=== PATIENT | female | born 1945 | race Caucasian/White ===

== ENCOUNTER 2020-02-27 11:51 | Outpatient (REF) | payer MEDICARE, BC, SELFPAY ==
--- NOTE | 2020-02-27 12:02 | XR_ITS ---
EXAMINATION: XR HAND, RIGHT CLINICAL INFORMATION: Right hand pain status post injury. COMPARISON: None TECHNIQUE: PA, lateral, and oblique views of the right hand. FINDINGS: Minimal to mild interphalangeal degenerative joint changes are seen most pronounced in the distal interphalangeal joints. Mild to moderate first carpometacarpal and triscaphe degenerative joint changes are seen. The carpal bones are normally aligned. The distal radius and ulna are intact. There is no acute fracture or dislocation. The soft tissues are unremarkable. XR/XR hand RT min 3V IMPRESSION: Degenerative joint changes as detailed above most consistent with osteoarthritis. No acute abnormality.
== END 2020-02-27 11:52 | disposition home or self-care (01) ==
LOC: HO.HMGCX 11:51
PROVIDERS: PCP Internal Medicine; Visit Provider Nurse Practitioner Family
DX: S69.90XA Unspecified injury of unspecified wrist, hand and finger(s), initial encounter (principal); X58.XXXA Exposure to other specified factors, initial encounter; Y93.9 Activity, unspecified; Y92.9 Unspecified place or not applicable; Y99.8 Other external cause status
CPT/HCPCS: 73130

== ENCOUNTER 2021-01-17 11:37 | Emergency (ER) | payer MEDICARE, BC, SELFPAY ==
--- NOTE | ~2021-01-17 | US_ITS ---
EXAMINATION: US VENOUS ULTRASOUND WITH DOPPLER LOWER EXTREMITY, LEFT CLINICAL INFORMATION: Left leg pain and swelling COMPARISON: Previous exam May 2017 TECHNIQUE: Ultrasound of the deep veins is performed from the hip to the calf with compression sonography and color and pulse Doppler assessment. Spectral analysis with color-flow imaging is performed. FINDINGS: There is normal venous compression and respiratory variation and augmented flow. The visualized common femoral vein, superficial femoral vein, profunda femoral vein, popliteal vein, and the trifurcation region shows no evidence of deep venous thrombosis. There is no Walker's cyst. US/US venous duplex LE LT IMPRESSION: No DVT demonstrated in the left lower extremity.
[2021-01-17 12:47] VITALS: BP 131/63; PULSE 67; RESP 16; TEMP 36.4; O2SAT 94; BMI 31.6
--- NOTE | 2021-01-17 14:08 | ED_ITS ---
HPI - Extremity Problem General Chief complaint: Extremity Problem Stated complaint: lt leg pain Time Seen by Provider: 01/17/21 12:26 Source: patient Mode of arrival: ambulatory Limitations: no limitations History of Present Illness HPI Narrative: Patient tells me she has had posterior left knee pain since this morning. No injury or trauma. She has had prior knee replacement on this side but denies any new injury. She also has varicose veins and poor circulation and is on aspirin 81 mg daily. No recent travel. No redness, swelling, fevers or chills Related Data Home Medications Medication Instructions Recorded Confirmed cyanocobalamin (vitamin B-12) 1,000 mcg PO DAILY 02/27/20 1,000 mcg tablet,extended release flu vacc 2020-(65yr IM 02/27/20 up)-MF59C(PF) 60 mcg(15 mcgx4)/0.5 mL IM syringe pravastatin 40 mg tablet mg PO 02/27/20 trazodone 50 mg tablet [id number] mg PO BEDTIME PRN 02/27/20 verapamil 180 mg tablet,extended mg PO 02/27/20 release cholecalciferol (vitamin D3) 50 50 mcg PO DAILY 01/17/21 mcg (2,000 unit) capsule cranberry fruit concentrate 250 mg 250 mg PO BID tab 01/17/21 chewable tablet (Azo Cranberry) Allergies Allergy/AdvReac Type Severity Reaction Status Date / Time nitroglycerin [NITROGLYCERIN] Allergy Unknown UNKNOWN Verified 01/17/21 12:50 penicillin V Allergy Unknown Rash Verified 01/17/21 12:50 Penicillins [PCN] Allergy Unknown RASH Verified 01/17/21 12:50 Review of Systems Review of Systems: Yes all other systems are reviewed and are negative Constitutional: Constitutional: Reports no additional constitutional complaints, Denies body ache(s), Denies chills, Denies fever(s), Denies headache(s) and Denies weakness Eyes: Eyes: Reports no additional eye complaints and Denies change in vision ENT: Reports system reviewed and no additional complaints, except as documented, Denies dizziness, Denies headache(s), Denies nasal congestion, Denies nasal discharge and Denies neck pain Cardiovascular: Cardiovascular: Reports no additional cardiovascular complaints, Denies chest pain, Denies leg edema and Denies dyspnea Respiratory: Respiratory: Reports no additional respiratory complaints, Denies cough and Denies dyspnea Gastrointestinal: Gastrointestinal: Reports no additional gastrointestinal complaints, Denies abdominal pain, Denies diarrhea, Denies nausea and Denies vomiting Genitourinary: Genitourinary: Reports no additional female genitourinary complaints and Denies urinary incontinence Musculoskeletal: Musculoskeletal: Reports no additional musculoskeletal complaints, Denies back pain, Denies arthralgias, Denies joint swelling, Reports muscle cramps, Denies neck pain, Denies numbness and Denies tingling Integumentary/Breasts: Skin/Breast: Reports system reviewed and no additional complaints, except as docu and Denies rash Neurologic: Reports system reviewed and no additional complaints, except as documented, Denies Abnormal speech present, Denies dizziness, Denies headache(s), Denies numbness, Denies tingling and Denies weakness PMFSH Past Medical History Attestation statement: The following information was validated with the patient. Source: old records reviewed and nursing notes reviewed Medical History Aortic insufficiency Breast CA Lung cancer PVD (peripheral vascular disease) Sleep apnea Social History Social History Advance Directives: No Physical Exam Vital Signs: Vital Signs: Last Vital Signs Temp 97.6 F 01/17/21 12:47 Pulse 67 01/17/21 12:47 Resp 16 01/17/21 12:47 BP 131/63 01/17/21 12:47 Pulse Ox 94 01/17/21 12:47 Body Mass Index 31.6 Const: General: cooperative, healthy appearing, comfortable and no acute distress Orientation/consciousness: patient oriented x3 Limitations: no limitations HENMT: Head: Yes normal to inspection Ears: hearing grossly normal bilaterally General nose exam: Normal external nose present Face and sinus: Yes normal facial exam Mouth: Normal oral and palatal mucosa present Throat: Yes posterior oropharynx normal Eyes: General: appearance normal, both eyes and all related structures Pupils: Equal, round and reactive pupils present Neck: Neck: Yes normal visual inspection Chest: Chest palpation & inspection: normal inspection of the chest Resp: Effort & Inspection: normal respiratory effort Auscultation: clear to auscultation bilaterally Cardio: Rate: regular rate Rhythm: regular rhythm Peripheral pulses: Peripheral pulses 2+ throughout GI: Inspection: Yes normal to inspection Palpation (GI): Soft to palpation and nontender Auscultation: normal bowel sounds Back/Spine/Pelvis: Thoracic/Lumbar Spine: thoracic and lumbar spine normal to inspection Skin: General skin exam: no rashes or lesions noted Neuro: General: patient oriented x3, no focal motor deficits and normal sensation to monofilament Cranial nerves: Yes Equal, round and reactive pupils present Cognition (Neuro): normal cognition Speech: No Abnormal speech present Gait exam (Neuro): Normal gait present Motor exam (neuro): 5/5 motor strength present throughout Extrem: Other: Tenderness behind the left posterior knee which is mild Full range of motion No swelling or erythema General: Yes normal to inspection Course Course Course Narrative: Posterior left knee pain with waking no injury or trauma Seen at urgent care. Referred to ED for ultrasound to rule out DVT. No evidence of cellulitis on exam. No bony tenderness. Ultrasound ordered 1540-ultrasound negative for DVT. Patient does report some instability over the last few days. ?ligamental injury. She does have an orthopedic doctor so recommended she follow up with them. Reviewed worrisome signs and symptoms of when to return to the emergency department. Comfortable discharge home. MDM - Extremity (Nontraumatic) Medical Records Attestation: I reviewed the patient's medical records. Lab Data Attestation: I reviewed the patient's lab results. Imaging Data Venous US: Attestation: I personally reviewed and interpreted this imaging study as follows: Radiologist's impression: Becca Mcmahon??75??F??1945 ? Allergy/Adv: nitroglycerin, penicillin V, Penicillins (More??) Close ER Physician Documentation 01/17/21 14:08 Office Visit 02/27/20 10:53 Hand X-Ray 02/27/20 12:02 Venous Duplex 01/17/21 14:05 Launch?Image [address] [id number] Ultrasound Report Signed Patient: Becca Mcmahon MR#: [id number] : 1945 Acct:[id number] Age/Sex: 75 / F ADM Date: 01/17/21 Loc: HO.ED Attending Dr: Ordering Physician: Elizabeth Rizvi NP Date of Service: 01/17/21 Procedure(s): US venous duplex LE LT Accession Number(s): [id number] cc: Elizabeth Rizvi NP~ EXAMINATION:? US VENOUS ULTRASOUND WITH DOPPLER LOWER EXTREMITY, LEFT CLINICAL INFORMATION:? Left leg pain and swelling COMPARISON:? Previous exam May 2017 TECHNIQUE: Ultrasound of the deep veins is performed from the hip to the calf with compression sonography and color and pulse Doppler assessment. Spectral analysis with color-flow imaging is performed. FINDINGS: There is normal venous compression and respiratory variation and augmented flow. The visualized common femoral vein, superficial femoral vein, profunda femoral vein, popliteal vein, and the trifurcation region shows no evidence of deep venous thrombosis. ? There is no Walker's cyst. US/US venous duplex LE LT IMPRESSION: No DVT demonstrated in the left lower extremity. Discharge Plan Discharge Clinical Impression: Acute pain of left knee Patient Disposition: Home, Self-Care Instructions: Knee Pain (ED) Additional Instructions: Ultrasound was negative for DVT Prescriptions: No Action verapamil 180 mg tablet extended release PO RF: 0 pravastatin 40 mg tablet PO RF: 0 Fluad Quad 2020-21(65y up)(PF) 60 mcg (15 mcg x 4)/0.5 mL syringe IM RF: 0 trazodone 50 mg tablet [id number] mg PO BEDTIME PRNRF: 0 cyanocobalamin (vitamin B-12) 1,000 mcg tablet extended release 1,000 mcg PO DAILY RF: 0 Referrals: Daniel Quan MD [Primary Care Provider] - 2 days
== END 2021-01-17 15:50 | disposition home or self-care (01) ==
PROVIDERS: Emergency Provider Emergency Medicine Emergency Medical Services; PCP Internal Medicine
DX: M25.562 Pain in left knee (principal); R60.0 Localized edema; Z79.899 Other long term (current) drug therapy
CPT/HCPCS: 93971; 99283; 99284